=== PATIENT | female | born 1970 | race Caucasian/White ===

== ENCOUNTER 2017-03-31 16:24 | Emergency (ER) | payer OTHER ==
--- NOTE | 2017-03-31 17:22 | ERPHSYRPT ---
- History of Present Illness Time Seen by Provider: 03/31/17 17:15 Source: patient Exam Limitations: no limitations Patient Subjective Stated Complaint: states that she feels like she has low iron - states that she has been having high blood pressure since she's been incarcerated - states that she was not given her HTN meds in [facility] - and just resumed taking her medication today - states that she had an NC when her iron was low before and does not want to have one again - denies pain currently however did mention that she experienced CP while in [facility] that is now resolved and has been feeling weak since then Triage Nursing Assessment: ambulatory to treatment area - steady gait - moves all extremities with equal strength. alert/oriented - pleasant affect. skin pwd - no rash/injury. resps easy - non-labored Physician History: 46-year-old white female with history of anemia and high blood pressure. She states that she is here because she recently had gotten out of [facility] and she is wanting to get her blood pressure controlled she states that she while in [facility] she was only able to get lisinopril and not her metoprolol. She does have a history of having anemia in the past. She denies any chest pain at all she does state that she had some pain while in [facility]. She is not short of breath no sickness to her stomach. Past medical history includes arthritis, high blood pressure, anxiety, depression. Patient states that she had an NC when she was low on her hemoglobin in the past. Past surgical history includes appendectomy, , gastric bypass. Timing/Duration: week(s) (out of blood pressure medicines for 2 weeks) Severity: mild Modifying Factors: Improves With: nothing Associated Symptoms: chest pain (chest pain while she was in [facility] not today), No nausea, No vomiting, No abdominal pain, No shortness of breath, No heartburn , No diaphoresis, No cough, No chills, No fever, No headaches, No loss of appetite, No malaise, No rash, No syncope, No seizure Allergies/Adverse Reactions: honey Allergy (Verified 03/31/17 16:43) Home Medications: Lisinopril 40 mg PO DAILY 04/15/12 [History] Alprazolam [Xanax] 2 mg PO Q6HPRN 02/13/13 [History] Dextroamphetamine/Amphetamine [Adderall 30 mg Tablet] 30 mg PO DAILY 02/13/13 [ History] Hydrocodone/APAP 10/325 mg [[place] 10/325 MG Tablet] 1 tab PO Q6HPRN [History] Ferrous Sulfate 220 mg/5 ml [Ferrous Sulfate (IRON) 220 MG/5 ML] 220 mg PO DAILY 10/25/14 [History] Hx Tetanus, Diphtheria Vaccination/Date Given: No Hx Influenza Vaccination/Date Given: No Hx Pneumococcal Vaccination/Date Given: No Immunizations Up to Date: Yes - Review of Systems Constitutional: No Fever, No Chills Eyes: No Symptoms Ears, Nose, & Throat: No Symptoms Respiratory: No Cough, No Dyspnea Cardiac: Chest Pain (chest pain while in [facility] not today), Other (patient states her blood pressure has been high) Abdominal/Gastrointestinal: No Abdominal Pain, No Nausea, No Vomiting, No Diarrhea Genitourinary Symptoms: No Dysuria Musculoskeletal: No Back Pain, No Neck Pain Skin: No Rash Neurological: No Dizziness, No Focal Weakness, No Sensory Changes Psychological: No Symptoms Endocrine: No Symptoms All Other Systems: Reviewed and Negative - Past Medical History Pertinent Past Medical History: Yes Neurological History: No Pertinent History ENT History: No Pertinent History Cardiac History: Hypertension Respiratory History: No Pertinent History Endocrine Medical History: No Pertinent History Musculoskeletal History: Arthritis GI Medical History: No Pertinent History History: No Pertinent History Psycho-Social History: Anxiety, Depression Female Reproductive Disorders: No Pertinent History - Past Surgical History Past Surgical History: Yes Neuro Surgical History: No Pertinent History Cardiac: No Pertinent History Gastrointestinal: Appendectomy, Other Genitourinary: No Pertinent History Musculoskeletal: No Pertinent History Female Surgical History: Section Other Surgical History: GASTRIC BYPASS-1999 - Social History Smoking Status: Current every day smoker How long have you smoked: 4 years Exposure to second hand smoke: No Drug Use: none Patient Lives Alone: No - Female History Hx Last Menstrual Period: 2 weeks - Nursing Vital Signs Nursing Vital Signs: Initial Vital Signs Temperature 98.5 F 03/31/17 16:43 Pulse Rate 74 03/31/17 16:43 Respiratory Rate 20 03/31/17 16:43 Blood Pressure 185/103 03/31/17 16:43 O2 Sat by Pulse Oximetry 100 03/31/17 16:43 Pain Scale Pain Intensity 0 - Physical Exam General Appearance: no apparent distress, alert Eye Exam: PERRL/EOMI, eyes nml inspection Ears, Nose, Throat Exam: normal ENT inspection, TMs normal, pharynx normal, moist mucous membranes Neck Exam: normal inspection, non-tender, supple, full range of motion Respiratory Exam: normal breath sounds, lungs clear, No respiratory distress Cardiovascular Exam: regular rate/rhythm, normal heart sounds, normal peripheral pulses Gastrointestinal/Abdomen Exam: soft, normal bowel sounds, No tenderness, No mass Back Exam: normal inspection, normal range of motion, No CVA tenderness, No vertebral tenderness Extremity Exam: normal inspection, normal range of motion, pelvis stable Neurologic Exam: alert, oriented x 3, cooperative, normal mood/affect, nml cerebellar function, nml station & gait, sensation nml, No motor deficits Skin Exam: normal color, warm, dry, No rash Lymphatic Exam: No adenopathy SpO2 Interpretation: normal (100%) SpO2: 100 Oxygen Delivery: Room Air Ordered Tests: Active Orders 24 hr Category Date Time Status EKG-ER Only STAT Care 03/31/17 17:18 Active IV Insertion STAT Care 03/31/17 17:18 Active CBC W DIFF Stat Lab 03/31/17 17:31 Completed CMP Stat Lab 03/31/17 17:31 Completed TROPONIN Q3H Lab 03/31/17 17:30 Completed TROPONIN Q3H Lab 03/31/17 20:30 Ordered TROPONIN Q3H Lab 03/31/17 23:30 Ordered TROPONIN Q3H Lab 04/01/17 02:30 Ordered TROPONIN Q3H Lab 04/01/17 05:30 Ordered Lab/Rad Data: Laboratory Result Diagrams 03/31/17 17:31 03/31/17 17:31 Laboratory Results 03/31/17 03/31/17 03/31/17 Range/Units 17:31 17:31 17:30 WBC 9.2 (4.0-10.5) K/mm3 RBC 4.52 (4.1-5.4) M/mm3 Hgb 8.7 L (12.0-16.0) gm/dl Hct 30.1 L (35-47) % MCV 66.6 L (78-100) fl MCH 19.2 L (26-32) pg MCHC 28.9 L (32-36) g/dl RDW 17.7 H (11.5-14.0) % Plt Count 254 (150-450) K/mm3 Gran % 68.8 H (36.0-66.0) % Lymphocytes % 17.4 L (24.0-44.0) % Monocytes % 10.5 (0.0-12.0) % Eosinophils % 2.8 (0.00-5.0) % Basophils % 0.5 (0.0-0.4) % Basophils # 0.05 (0-0.4) Sodium 139 (136-145) mEq/L Potassium 4.2 (3.5-5.1) mEq/L Chloride 106 (98-107) mEq/L Carbon Dioxide 25.6 (21-32) mEq/L Anion Gap 12.0 (5-15) MEQ/L BUN 14 (9-20) mg/dL Creatinine 0.90 (0.55-1.30) mg/dl Estimated GFR > 60 ML/MIN Glucose 91 (70-110) MG/DL Calcium 8.5 (8.5-10.1) mg/dL Total Bilirubin 0.20 (0.2-1.0) mg/dL AST 43 H (15-37) U/L ALT 70 (12-78) U/L Alkaline Phosphatase 142 H (46-116) U/L Troponin I < 0.017 (0.000-0.056) ng/ml Serum Total Protein 7.4 (6.4-8.2) gm/dL Albumin 3.4 (3.4-5.0) g/dL - Progress Progress: improved Progress Note: 03/31/17 19:03 Patient feeling better. Blood pressure 144/77. EKG no acute changes patient's hemoglobin is 8.7 hematocrit 30.1 white count 9.2. Troponin within normal limits chemistry slight elevation of creatinine of 1.42 GFR is 53. Patient has lisinopril 10 mg and Metroprolol at home. She states she will begin to take this. Will release patient and have her follow up with her family doctor. - Departure Time of Disposition: 19:04 Departure Disposition: Home Clinical Impression: Chronic anemia Hypertension Qualifiers: Hypertension type: unspecified Qualified Code(s): I10 - Essential (primary) hypertension Condition: Fair Critical Care Time: No Additional Instructions: Return home. Medications as prescribed by your family doctor. Follow-up with your family doctor. Return for acute distress or for severe symptoms.
[2017-03-31 17:46] LABS: BASOPHIL % 0.5 % (0.0-0.4); Eosinophil % 2.8 % (0.00-5.0); Granulocytes % 68.8 % (36.0-66.0); Lymphocytes % 17.4 % (24.0-44.0); Mean Cell Volume 66.6 fl (78-100); Mean Corpuscular Hemoglobin 19.2 pg (26-32); Monocytes % 10.5 % (0.0-12.0); Platelet Count 254 K/mm3 (150-450); Red Blood Count 4.52 M/mm3 (4.1-5.4); Red Cell Distribution Width 17.7 % (11.5-14.0); White Blood Count 9.2 K/mm3 (4.0-10.5)
[2017-03-31 18:33] LABS: ALBUMIN 3.4 g/dL (3.4-5.0); ALKALINE PHOSPHATASE 142 U/L (46-116); BLOOD UREA NITROGEN 14 mg/dL (9-20); CHLORIDE 106 mEq/L (98-107); Carbon Dioxide 25.6 mEq/L (21-32); Glucose 91 MG/DL (70-110); Potassium 4.2 mEq/L (3.5-5.1); SGOT/AST 43 U/L (15-37); SGPT/ALT 70 U/L (12-78); SODIUM 139 mEq/L (136-145); Total Protein 7.4 gm/dL (6.4-8.2)
[2017-03-31 19:01] VITALS: BP 145/77; PULSE 70
[2017-03-31 19:06] VITALS: O2SAT 100
== END 2017-03-31 19:15 | disposition home or self-care (01) ==
LOC: ED 16:24
DX: I10 Essential (primary) hypertension (principal); D64.89 Other specified anemias; F41.9 Anxiety disorder, unspecified
CPT/HCPCS: 36000; 36415; 80053; 84484; 85025; 93005; 96360; 99284

== ENCOUNTER 2023-03-22 16:06 | Emergency (ER) | payer OTHER ==
[2023-03-22 16:26] VITALS: TEMP 96.5
[2023-03-22] MEDS ORDERED: Hydromorphone 1 mg/ml Injection IV ONE (16:36)
[2023-03-22] MEDS ORDERED: TORAdol 30 mg Injection IV ONE (16:36)
[2023-03-22] MEDS ORDERED: Zofran 4 MG/2 ML VIAL IV ONE (16:36)
[2023-03-22] MEDS ORDERED: Sodium Chloride 0.9% 1000 ML 1,000 ML IV STA (16:36)
[2023-03-22] MEDS ORDERED: TORAdol 30 mg Injection ONE (16:41)
[2023-03-22] MEDS ORDERED: Sodium Chloride 0.9% 1000 ML 1,000 ML ONE (16:41)
[2023-03-22] MEDS ORDERED: Hydromorphone 1 mg/ml Injection ONE (16:41)
[2023-03-22] MEDS ORDERED: Zofran 4 MG/2 ML VIAL ONE (16:41)
[2023-03-22 16:53] LABS: Absolute Neutrophil Ct (ANC) 5.88 x10^3/uL (1.4-6.9); BASOPHIL % 0.9 % (0.0-0.4); Basophil (Absolute #) 0.07 x10^3/uL (0-0.4); Eosinophil % 1.6 % (0.00-5.0); Eosinophil (Absolute #) 0.12 x10^3/uL (0-0.5); Hematocrit 36.5 % (35-47); Hemoglobin 10.8 g/dL (12.0-16.0); IMMATURE GRAN # 0.02 x10^3u/L (0.00-0.03); IMMATURE GRAN % 0.3 % (0.00-0.4); Lymphocyte (Absolute #) 0.89 x10^3/uL (1.0-4.6); Mean Cell Volume 77.2 fL (78-100); Mean Corpuscular Hemoglobin 22.8 pg (26-32); Mean Corpuscular Hgb Concent. 29.6 g/dL (32-36); Mean Platelet Volume 12.5 fL (7.5-11.0); Monocyte (Absolute #) 0.46 x10^3/uL (0.0-1.3); Monocytes % 6.2 % (0.0-12.0); Platelet Count 191 x10^3/uL (150-450); Red Blood Count 4.73 x10^6/uL (4.1-5.4); Red Cell Distribution Width 16.4 % (11.5-14.0); White Blood Count 7.4 x10^3/uL (4.0-10.5)
--- NOTE | 2023-03-22 17:00 | ERPHSYRPT ---
- History of Present Illness Time Seen by Provider: 03/22/23 16:35 Historian: patient Exam Limitations: no limitations Patient Subjective Stated Complaint: Abdominal pain-Right lower Triage Nursing Assessment: Patient ambulated back to ED per w/c and transferred self to bed. Patient A+O X 3. Patient's skin pink, warm and dry. Patient complains of right lower abdominal pain that started today around 1530. Patient complains of nausea, but denies vomiting and diarrhea. Patient complains of constant aching pain with intermittent sharp pain 8/10. Patient also complains of frequency and urgency. Physician History: This is a 52-year-old white female patient of Dr. Aguilar who presents with right lower quadrant abdominal pain that began today. She describes as a low level constant contraction with periodic bouts of sharp pain. She does have mild achiness in the right flank. She has nausea but no vomiting. She denies diarrhea. She has no chest pain. She has no shortness of breath. Patient has had an appendectomy in the past. Patient has a history of hypertension and she took her antihypertensive medication today but did not take her nighttime dose yesterday. She has had frequent urinary tract infections and is experiencing urinary frequency. Timing/Duration: today ( ) Activities at Onset: none Quality: cramping (Like a contraction) Abdominal Pain Onset Location: RLQ, flank (Mild right) Severity of Pain-Max: moderate Modifying Factors: Improves With: nothing Associated Symptoms: nausea, No chest pain, No diaphoresis, No diarrhea, No fever/chills, No vomiting Previous symptoms: no prior history, no recent treatment Allergies/Adverse Reactions: honey Allergy (Verified 03/22/23 16:17) Home Medications: Lisinopril 40 mg PO DAILY 04/15/12 [History] ALPRAZolam [Xanax] 2 mg PO Q6HPRN 02/13/13 [History] Dextroamphetamine/Amphetamine [Adderall 30 mg Tablet] 30 mg PO DAILY 02/13/13 [History] Hydrocodone/APAP 10/325 mg [[place] 10/325 MG Tablet] 1 tab PO Q6HPRN 02/13/13 [History] Ferrous Sulfate 220 mg/5 ml [Ferrous Sulfate (IRON) 220 MG/5 ML] 220 mg PO DAILY 10/25/14 [History] Hx Tetanus, Diphtheria Vaccination/Date Given: No Hx Influenza Vaccination/Date Given: No Hx Pneumococcal Vaccination/Date Given: No Immunizations Up to Date: Yes Travel Risk - International Travel Have you traveled outside of the country in past 3 weeks: No - Coronavirus Screening Are you exhibiting any of the following symptoms?: No Close contact with a COVID-19 positive Pt in past 14-21 Days: No - Vaccine Status Have you recieved a Covid-19 vaccination: Yes 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 - Vaccination Dates Dates if Unknown: na - Review of Systems Constitutional: No Symptoms Eyes: No Symptoms Ears, Nose, & Throat: No Symptoms Respiratory: No Symptoms Cardiac: No Symptoms Abdominal/Gastrointestinal: Abdominal Pain, Nausea, No Vomiting, No Diarrhea, No Constipation, No Appetite Changes Genitourinary Symptoms: Frequency Musculoskeletal: No Symptoms Skin: No Symptoms Neurological: No Symptoms Psychological: No Symptoms Endocrine: No Symptoms Hematologic/Lymphatic: No Symptoms Immunological/Allergic: No Symptoms All Other Systems: Reviewed and Negative - Past Medical History Pertinent Past Medical History: Yes Neurological History: No Pertinent History ENT History: No Pertinent History Cardiac History: Hypertension Respiratory History: No Pertinent History Endocrine Medical History: No Pertinent History Musculoskeletal History: Arthritis GI Medical History: No Pertinent History History: No Pertinent History Psycho-Social History: Anxiety, Depression Female Reproductive Disorders: No Pertinent History - Past Surgical History Past Surgical History: Yes Neuro Surgical History: No Pertinent History Cardiac: No Pertinent History Gastrointestinal: Appendectomy, Other Genitourinary: No Pertinent History Musculoskeletal: No Pertinent History Female Surgical History: Section Other Surgical History: GASTRIC BYPASS-1999 - Social History Smoking Status: Current every day smoker How long have you smoked: 4 years Exposure to second hand smoke: No Drug Use: none Patient Lives Alone: Yes - Nursing Vital Signs Nursing Vital Signs: Initial Vital Signs Temperature 96.5 F 03/22/23 16:20 Pulse Rate 59 L 03/22/23 16:20 Respiratory Rate 18 03/22/23 16:20 Blood Pressure 201/92 03/22/23 16:20 O2 Sat by Pulse Oximetry 99 03/22/23 16:20 Pain Scale Pain Intensity 0 - Physical Exam General Appearance: no apparent distress, alert, anxiety Eye Exam: PERRL/EOMI, eyes nml inspection Ears, Nose, Throat Exam: normal ENT inspection, moist mucous membranes Neck Exam: normal inspection, non-tender, supple, full range of motion Respiratory Exam: normal breath sounds, lungs clear, airway intact, No chest t enderness, No respiratory distress Cardiovascular Exam: regular rate/rhythm, normal heart sounds, normal peripheral pulses Gastrointestinal/Abdomen Exam: soft, normal bowel sounds, tenderness (Right lower quadrant), guarding (Right lower quadrant) Pelvic Exam: not done Rectal Exam: not done Back Exam: normal inspection, normal range of motion, No CVA tenderness, No vertebral tenderness Extremity Exam: normal inspection, normal range of motion, pelvis stable Neurologic Exam: alert, oriented x 3, cooperative, jewelry cutter II-XII nml as tested, normal mood/affect, nml cerebellar function, nml station & gait, sensation nml Skin Exam: normal color, warm, dry Lymphatic Exam: No adenopathy SpO2 Interpretation: normal SpO2: 99 O2 Delivery: Room Air - Course Nursing assessment & vital signs reviewed: Yes EKG Interpreted by Me: RATE (54), Sinus Rhythm, NORMAL AXIS, NORMAL INTERVALS, NORMAL QRS, NORMAL ST-T, Other (No acute ischemic changes on today's twelve-lead EKG) Ordered Tests: Active Orders 24 hr Category Date Time Status EKG-ER Only STAT Care 03/22/23 17:36 Active IV Insertion STAT Care 03/22/23 16:36 Active ABDOMEN AND PELVIS W/0 CONTRAS [CT] Stat Exams 03/22/23 16:36 Completed AMYLASE Stat Lab 03/22/23 16:49 Completed CBC W DIFF Stat Lab 03/22/23 16:49 Completed CMP Stat Lab 03/22/23 16:49 Completed LIPASE Stat Lab 03/22/23 16:49 Completed UA W/RFX UR CULTURE Stat Lab 03/22/23 17:29 Completed Medication Summary Discontinued Medications Generic Name Dose Route Start Last Admin Trade Name Goldenq PRN Reason Stop Dose Admin Enalaprilat 1.25 mg 03/22/23 17:17 03/22/23 17:18 Enalaprilat 2.5 Mg Injection IV 03/22/23 17:18 1.25 mg STAT ONE Administration Enalaprilat Confirm 03/22/23 17:18 Enalaprilat 2.5 Mg Injection Administered 03/22/23 17:19 Dose 2.5 mg IV .STK-MED ONE Hydromorphone HCl 1 mg 03/22/23 16:36 03/22/23 16:42 Hydromorphone 1 Mg/1ml Inj IV 03/22/23 16:37 1 mg STAT ONE Administration Hydromorphone HCl Confirm 03/22/23 16:41 Hydromorphone 1 Mg/1ml Inj Administered 03/22/23 16:42 Dose 1 mg .ROUTE .STK-MED ONE Sodium Chloride 1,000 mls @ 999 mls/hr 03/22/23 16:36 03/22/23 16:42 Sodium Chloride 0.9% 1000 Ml IV 03/22/23 17:36 999 mls/hr .Q1H1M STA Administration Sodium Chloride Confirm 03/22/23 16:41 Sodium Chloride 0.9% 1000 Ml Administered 03/22/23 16:42 Dose 1,000 mls @ ud .ROUTE .STK-MED ONE Ketorolac Tromethamine 30 mg 03/22/23 16:36 03/22/23 16:42 Ketorolac Tromethamine 30 Mg/Ml Inj IV 03/22/23 16:37 30 mg STAT ONE Administration Ketorolac Tromethamine Confirm 03/22/23 16:41 Ketorolac Tromethamine 30 Mg/Ml Inj Administered 03/22/23 16:42 Dose 30 mg .ROUTE .STK-MED ONE Ondansetron HCl 4 mg 03/22/23 16:36 03/22/23 16:42 Ondansetron Hcl 4 Mg/2 Ml Vial IV 03/22/23 16:37 4 mg STAT ONE Administration Ondansetron HCl Confirm 03/22/23 16:41 Ondansetron Hcl 4 Mg/2 Ml Vial Administered 03/22/23 16:42 Dose 4 mg .ROUTE .STK-MED ONE Lab/Rad Data: Laboratory Result Diagrams 03/22/23 16:49 03/22/23 16:49 Laboratory Results 03/22/23 03/22/23 03/22/23 Range/Units 17:29 16:49 16:49 WBC 7.4 (4.0-10.5) x10^3/uL RBC 4.73 (4.1-5.4) x10^6/uL Hgb 10.8 L (12.0-16.0) g/dL Hct 36.5 (35-47) % MCV 77.2 L (78-100) fL MCH 22.8 L (26-32) pg MCHC 29.6 L (32-36) g/dL RDW 16.4 H (11.5-14.0) % Plt Count 191 (150-450) x10^3/uL MPV 12.5 H (7.5-11.0) fL Gran % 79.0 H (36.0-66.0) % Immature Gran % (Auto) 0.3 (0.00-0.4) % Nucleat RBC Rel Count 0.0 (0.00-0.1) % Eos # (Auto) 0.12 (0-0.5) x10^3/uL Immature Gran # (Auto) 0.02 (0.00-0.03) x10^3u/L Absolute Lymphs (auto) 0.89 L (1.0-4.6) x10^3/uL Absolute Monos (auto) 0.46 (0.0-1.3) x10^3/uL Absolute Nucleated RBC 0.00 (0.00-0.01) x10^3u/L Lymphocytes % 12.0 L (24.0-44.0) % Monocytes % 6.2 (0.0-12.0) % Eosinophils % 1.6 (0.00-5.0) % Basophils % 0.9 (0.0-0.4) % Absolute Granulocytes 5.88 (1.4-6.9) x10^3/uL Basophils # 0.07 (0-0.4) x10^3/uL Sodium 140 (137-145) mmol/L Potassium 4.3 (3.5-5.1) mmol/L Chloride 108 H (98-107) mmol/L Carbon Dioxide 24 (22-30) mmol/L Anion Gap 12.6 (5-15) MEQ/L BUN 19 H (7-17) mg/dL Creatinine 0.87 (0.52-1.04) mg/dL Estimated GFR > 60.0 ML/MIN Glucose 117 H (74-106) mg/dL Calcium 8.8 (8.4-10.2) mg/dL Total Bilirubin 0.40 (0.2-1.3) mg/dL AST 48 H (14-36) U/L ALT 54 H (0-35) U/L Alkaline Phosphatase 164 H (38-126) U/L Serum Total Protein 8.0 (6.3-8.2) g/dL Albumin 3.9 (3.5-5.0) g/dL Amylase 68 (30-110) U/L Lipase 129 (23-300) U/L Urine Color Yellow (Yellow) Urine Appearance Clear (Clear) Urine pH 5.5 (4.6-8.0) Ur Specific [place] 1.020 (1.005-1.030) Urine Protein Trace A (Negative) Urine Glucose (UA) Negative (Negative) mg/dL Urine Ketones Negative (Negative) Urine Blood Moderate A (Negative) Urine Nitrite Negative (Negative) Urine Bilirubin Negative (Negative) Urine Urobilinogen 1.0 A (0.2) mg/dL Ur Leukocyte Esterase Trace A (Negative) U Hyaline Cast (Auto) NONE SEEN (0-2) /LPF Urine Microscopic RBC 11-20 A (0-5) /HPF Urine Microscopic WBC 3-5 (0-5) /HPF Ur Epithelial Cells None Seen (None Seen) /HPF Urine Bacteria None Seen (None Seen) /HPF Urine Culture Reflexed NO (NO) - Progress Progress: improved, re-examined Progress Note: 03/22/23 17:23 Patient reexamined. Her pain has completely resolved. CT scan of the abdomen and pelvis without contrast was interpreted by the radiologist. There was a new 3 to 4 mm urinary bladder calculus adjacent to the right UVJ. There is ureteral prominence and mild renal edema on the right side consistent with recent passage of calculus. This patient has a medical issue of moderate complexity. The level of complexity and the work-up performed was based on review of the patient's past medical history, review the patient's medication list, review of the patient's drug allergy list, history present illness, physical finds on examination. This included placement of an intravenous line, infusion of normal saline solution 1 L, intravenous Zofran, Toradol 30 mg, Dilaudid 1 mg. We also performed a CBC, CMP, amylase, lipase and urinalysis. Patient has passed ureteral calculus. I am awaiting the urinalysis to evaluate whether or not the patient has an associated urinary tract infection. In addition patient has a history of hypertension and her systolic blood pressure is elevated. It improved after her pain resolved. However still elevated and she did not take her antihypertensive medication last night. We will provide her with enalaprilat IV 1.25 mg. Medical Desision Making - Diagnostic Testing Diagnostic test were ordered, analyzed, and reviewed by me: Yes Radiological Interpretation: Reviewed by me, Teleradiologist Report - Risk of complications The pt has a mod risk of morbidity or mortality based on: Need for prescription drug management - Departure Departure Disposition: Home Clinical Impression: Ureteral calculus, right, Hypertension Condition: Stable Critical Care Time: No Referrals: NICK AGUILAR MD [Primary Care Provider] - Follow up/PCP as directed Additional Instructions: Drink plenty of fluids. Take your medication as prescribed. If there are no contraindications, take 600 mg ibuprofen with food 3 times a day for the next 3 to 5 days. Follow-up with your primary care provider by phone tomorrow, 03/23/2023, to make arrangements for an appointment for further evaluation and management. Prescriptions: Ondansetron ODT 4 MG [Zofran Odt 4 mg] 4 mg PO Q6H PRN PRN #10 tablet PRN Reason: Vomiting
[2023-03-22 17:04] LABS: ALBUMIN 3.9 g/dL (3.5-5.0); ALKALINE PHOSPHATASE 164 U/L (38-126); AMYLASE 68 U/L (30-110); ANION GAP 12.6 MEQ/L (5-15); BLOOD UREA NITROGEN 19 mg/dL (7-17); CHLORIDE 108 mmol/L (98-107); Calcium 8.8 mg/dL (8.4-10.2); Carbon Dioxide 24 mmol/L (22-30); Creatinine 1 0.87 mg/dL (0.52-1.04); EST GLOMERULAR FILTRATION RATE > 60.0 ML/MIN; Glucose 117 mg/dL (74-106); LIPASE 129 U/L (23-300); Potassium 4.3 mmol/L (3.5-5.1); SGOT/AST 48 U/L (14-36); SGPT/ALT 54 U/L (0-35); SODIUM 140 mmol/L (137-145)
--- NOTE | 2023-03-22 17:11 | XRAY ---
Indication: Right lower quadrant pain. Multiple contiguous axial images obtained through the abdomen and pelvis without contrast using renal stone protocol. Comparison: October 09, 2006 Lung bases again demonstrates a few bilateral calcified granulomas. Heart not enlarged. Stable gastroesophageal postsurgical changes with new moderate size hiatal hernia. Posterior urinary bladder demonstrates new 3-4 mm calculus adjacent to right UVJ. Right ureter slightly prominent along with mild hydronephrosis and right renal edema consistent with recent passage of said calculus. No renal calculus or evidence for obstructive uropathy on the left. Again gastric bypass surgery and hysterectomy. Noncontrasted stomach and bowel loops nonobstructed. No free fluid/air. Remaining liver, gallbladder, pancreas, spleen, adrenal glands, kidneys, ureters, and bladder are unremarkable for noncontrast exam. Mild scattered aortoiliac calcifications without AAA. Osseous structures intact with now minimal degenerative spondylosis throughout the thoracolumbar spine and 4-5 mm L4 anterolisthesis. Impression: 1. New 3-4 mm urinary bladder calculus adjacent to right UVJ. Right renal edema, hydronephrosis, and ureteral prominence consistent with recent passage of calculus. 2. New moderate size hiatal hernia. 3. New multilevel degenerative spondylosis and grade 1 L4 listhesis.
[2023-03-22] MEDS ORDERED: ENALAPRILAT 2.5 MG INJECTION IV ONE ×2 (17:17→17:18)
[2023-03-22 17:40] LABS: Appearance Clear (Clear); Bacteria None Seen /HPF (None Seen); Bilirubin Negative (Negative); Blood Moderate (Negative); Epithelial Cells None Seen /HPF (None Seen); Glucose, Urine Negative (Negative); Hyaline Casts NONE SEEN /LPF (0-2); Ketones Negative (Negative); Leukocyte Esterase Trace (Negative); Nitrite Negative (Negative); Ph 5.5 (4.6-8.0); Protein,Urine Dip Trace (Negative)
[2023-03-22 17:42] LABS: ADD URINE CULTURE? NO (NO)
[2023-03-22 17:50] VITALS: BP 147/112; PULSE 60; RESP 18; O2SAT 98
== END 2023-03-22 17:57 | disposition home or self-care (01) ==
LOC: ED 16:06
DX: N20.1 Calculus of ureter (principal); I10 Essential (primary) hypertension; R10.31 Right lower quadrant pain; R11.0 Nausea; Z79.899 Other long term (current) drug therapy; Z72.0 Tobacco use
CPT/HCPCS: 36000; 36415; 74176; 80053; 81001; 82150; 83690; 85025; 93005; 96360; 96374; 96375; 99284; J1170; J1885; J2405